=== PATIENT | female | born 1950 | race Caucasian/White ===

== ENCOUNTER → 2018-05-02 | Outpatient (CLI) | payer OTHER ==
[~2018-05-02] VITALS: Ht 149.9 cm; Wt 68.5 kg
[~2018-05-02] MED LIST: CLARITIN10 M3 PO; MOTRIN800 MG PO; TRAZODONE HCL50 MG PO
== END | disposition home or self-care (01) ==
LOC: AMB 11:10
DX: D12.3 Benign neoplasm of transverse colon (principal); K57.30 Diverticulosis of large intestine without perforation or abscess without bleeding; K21.9 Gastro-esophageal reflux disease without esophagitis; Z15.09 Genetic susceptibility to other malignant neoplasm; Z80.0 Family history of malignant neoplasm of digestive organs
CPT/HCPCS: 88305

== ENCOUNTER 2018-06-25 22:29 | Emergency (ER) | payer OTHER ==
[~2018-06-25] VITALS: Ht 149.9 cm; Wt 61.2 kg
[2018-06-25 23:16] LABS: HEMATOCRIT 32.1 % (36.0-46.0); HEMOGLOBIN 11.6 G/DL (11.9-15.5); MCH 28.6 PG (29.0-34.0); MCHC 36.1 G/DL (30.0-36.0); MCV 79.3 FL (83-99); PLATELET COUNT 232 K/uL (156-360); RBC DIS.WIDTH-CV 13.9 % (11.8-14.6); RBC DIS.WIDTH-SD 40.1 % (39-53); RED BLOOD COUNT 4.05 M/uL (3.80-5.20); WHITE BLOOD COUNT 8.3 K/uL (4.1-10.2)
[2018-06-25 23:24] LABS: INTER. NORMALIZED RATIO 1.1
[2018-06-25 23:27] LABS: CHLORIDE 108 mEq/L (99-109); POTASSIUM 3.6 mEq/L (3.7-5.4); SODIUM 140 mEq/L (136-147)
[2018-06-25 23:29] LABS: GLUCOSE 91 mg/dL (70-99)
[2018-06-25 23:33] LABS: CREATININE 0.8 mg/dL (0.6-1.3); GFR ESTIMATE (CALCULATED) > 59 mL/min/
[2018-06-25 23:34] LABS: UREA NITROGEN (BUN) 10 mg/dL (9-23)
[2018-06-26 00:07] VITALS: BP 154/94
== END 2018-06-26 00:10 | disposition home or self-care (01) ==
LOC: EME 22:29
DX: M79.662 Pain in left lower leg (principal)
CPT/HCPCS: 80048; 85027; 85610; 93971; 99281; 99284